=== PATIENT | male | born 1960 | race Caucasian/White ===

== ENCOUNTER 2017-11-18 08:19 | Day surgery (SDC) | payer MEDICAID ==
[~2017-11-18] VITALS: Ht 177.8 cm; Wt 100.0 kg
[~2017-11-18 08:19] MED LIST: ATOR-2 PO; FENO134C PO; LORA10TA7 PO; METF500T6 PO; NITR0.4T48 SL; OMEP40CA37 PO; OXYC-150 PO; PREG100C PO; RIVA10TA PO; SUMA50TA PO; TEST200V IM
[2017-11-18] MEDS ORDERED: LIDOcaine Viscous 15ml cup ONE (08:27)
[2017-11-18] MEDS ORDERED: MIDAZolam 5mg/5ml vial ONE (08:27)
[2017-11-18] MEDS ORDERED: fentaNYL/PF 50MCG/1 ML 2ML syringe ONE (08:27)
[2017-11-18] MEDS ORDERED: MULT-933 PO (08:47)
[2017-11-18] MEDS ORDERED: OMEG-79 PO (08:48)
[2017-11-18 08:49] VITALS: BP 161/101
[2017-11-18 09:40] VITALS: BP 165/103
[2017-11-18 09:50] VITALS: BP 168/103
[2017-11-18 10:00] VITALS: BP 167/104
[2017-11-18 10:10] VITALS: BP 165/106
== END 2017-11-18 10:20 | disposition home or self-care (01) ==
LOC: GI LAB 08:19
PROVIDERS: ATTEND Internal Medicine Gastroenterology
DX: K29.50 Unspecified chronic gastritis without bleeding (principal); K57.30 Diverticulosis of large intestine without perforation or abscess without bleeding; K64.8 Other hemorrhoids; K63.89 Other specified diseases of intestine; I25.2 Old myocardial infarction; I10 Essential (primary) hypertension; E11.9 Type 2 diabetes mellitus without complications; Z86.73 Personal history of transient ischemic attack (TIA), and cerebral infarction without residual deficits; Z98.890 Other specified postprocedural states; Z86.14 Personal history of Methicillin resistant Staphylococcus aureus infection; Z87.39 Personal history of other diseases of the musculoskeletal system and connective tissue; Z87.19 Personal history of other diseases of the digestive system
CPT/HCPCS: 43239; 45378; J2250; J3010; J7030; A4620; G0500

== ENCOUNTER 2018-06-25 16:30 | Emergency (ER) | payer MEDICAID ==
[~2018-06-25] VITALS: Ht 180.3 cm; Wt 97.7 kg
[~2018-06-25 16:30] MED LIST changes: +METF-950 PO; -METF500T6 PO; +MULT-933 PO; +OMEG-79 PO; -TEST200V IM
[2018-06-25 16:54] VITALS: BP 148/72
[2018-06-25] MEDS ORDERED: HYDROcodone/acetaminophen 5mg/325mg tablet PO ONE (18:40)
== END 2018-06-25 19:27 | disposition home or self-care (01) ==
LOC: ER 16:32
DX: S20.211A Contusion of right front wall of thorax, initial encounter (principal); M25.511 Pain in right shoulder; I25.10 Atherosclerotic heart disease of native coronary artery without angina pectoris; I10 Essential (primary) hypertension; E78.00 Pure hypercholesterolemia, unspecified; I25.2 Old myocardial infarction; J44.9 Chronic obstructive pulmonary disease, unspecified; K21.9 Gastro-esophageal reflux disease without esophagitis; E11.9 Type 2 diabetes mellitus without complications; G89.29 Other chronic pain; Z86.73 Personal history of transient ischemic attack (TIA), and cerebral infarction without residual deficits; Z86.718 Personal history of other venous thrombosis and embolism; Z98.61 Coronary angioplasty status; Z98.890 Other specified postprocedural states; Z88.0 Allergy status to penicillin; Z88.2 Allergy status to sulfonamides; Z88.6 Allergy status to analgesic agent; Z91.040 Latex allergy status; Z88.8 Allergy status to other drugs, medicaments and biological substances; Z79.84 Long term (current) use of oral hypoglycemic drugs; Z79.899 Other long term (current) drug therapy; V09.9XXA Pedestrian injured in unspecified transport accident, initial encounter; Y93.89 Activity, other specified; Y92.89 Other specified places as the place of occurrence of the external cause; Y99.8 Other external cause status
CPT/HCPCS: 71046; 73030; 99284

== ENCOUNTER 2018-07-02 09:26 | Emergency (ER) | payer MEDICAID ==
[~2018-07-02] VITALS: Ht 177.8 cm; Wt 99.8 kg
[2018-07-02 09:31] VITALS: BP 136/95
[2018-07-02] MEDS ORDERED: ketorolac tromethamine 15mg/ml inj. IM ONE (10:35)
[2018-07-02] MEDS ORDERED: diazepam 5mg tablet PO ONE (10:35)
[2018-07-02] MEDS ORDERED: VAL5T PO (10:36)
== END 2018-07-02 10:46 | disposition home or self-care (01) ==
LOC: ER 09:27
DX: S29.012A Strain of muscle and tendon of back wall of thorax, initial encounter (principal); I25.10 Atherosclerotic heart disease of native coronary artery without angina pectoris; E78.00 Pure hypercholesterolemia, unspecified; I10 Essential (primary) hypertension; I25.2 Old myocardial infarction; J44.9 Chronic obstructive pulmonary disease, unspecified; K21.9 Gastro-esophageal reflux disease without esophagitis; E11.9 Type 2 diabetes mellitus without complications; G89.29 Other chronic pain; Z86.718 Personal history of other venous thrombosis and embolism; Z95.5 Presence of coronary angioplasty implant and graft; Z98.890 Other specified postprocedural states; Z88.0 Allergy status to penicillin; Z88.2 Allergy status to sulfonamides; Z88.6 Allergy status to analgesic agent; Z91.040 Latex allergy status; Z79.899 Other long term (current) drug therapy; X58.XXXA Exposure to other specified factors, initial encounter; Y93.89 Activity, other specified; Y92.89 Other specified places as the place of occurrence of the external cause; Y99.9 Unspecified external cause status
CPT/HCPCS: 96372; 99284; J1885

== ENCOUNTER 2018-12-24 08:35 | Outpatient (CLI) | payer MEDICAID ==
[~2018-12-24 08:35] MED LIST changes: +OMEP40CA13 PO; -OMEP40CA37 PO
[2018-12-30] MEDS ORDERED: EVOL140P (16:05)
[2018-12-30] MEDS ORDERED: GABA-532 PO (16:05)
[2018-12-30] MEDS ORDERED: FERR324T4 PO (16:05)
[2018-12-30] MEDS ORDERED: FLUT1AER INH (16:05)
== END 2018-12-24 23:59 | disposition home or self-care (01) ==
LOC: RAD 08:35
PROVIDERS: ATTEND Surgery
DX: R10.9 Unspecified abdominal pain (principal); R11.2 Nausea with vomiting, unspecified; I10 Essential (primary) hypertension; E11.9 Type 2 diabetes mellitus without complications
CPT/HCPCS: 76700

== ENCOUNTER 2018-12-24 13:49 | Outpatient (CLI) | payer MEDICAID ==
[2018-12-30] MEDS ORDERED: FLUT1AER INH (16:05)
[2018-12-30] MEDS ORDERED: FERR324T4 PO (16:05)
[2018-12-30] MEDS ORDERED: GABA-532 PO (16:05)
[2018-12-30] MEDS ORDERED: EVOL140P (16:05)
== END 2018-12-24 23:59 | disposition home or self-care (01) ==
LOC: RAD 13:49
PROVIDERS: ATTEND Surgery
DX: R10.2 Pelvic and perineal pain (principal)
CPT/HCPCS: 76882

== ENCOUNTER 2018-12-31 07:51 | Day surgery (SDC) | payer MEDICAID ==
[2018-12-30 15:06] LABS: BASOPHILS # (AUTO) 0.1 X10'3 (0-0.2); BASOPHILS % (AUTO) 1.1 % (0-1); EOSINOPHILS # (AUTO) 0.1 X10'3 (0-0.9); EOSINOPHILS % (AUTO) 2.1 % (0-6); LYMPHOCYTES # (AUTO) 1.2 X10'3 (1.1-4.8); LYMPHOCYTES % (AUTO) 22.6 % (21-51); MEAN CORPUSCULAR HEMOGLOBIN 31.4 PG (27.0-31.0); MEAN CORPUSCULAR HGB CONC 34.2 g/dL (33.0-36.5); MEAN CORPUSCULAR VOLUME 91.9 FL (78-98); MEAN PLATELET VOLUME 6.7 FL (7.4-10.4); MONOCYTES # (AUTO) 0.5 X10'3 (0-0.9); MONOCYTES % (AUTO) 9.4 % (2-12); NEUTROPHILS # (AUTO) 3.5 X10'3 (1.8-7.7); NEUTROPHILS % (AUTO) 64.8 % (42-75); PRE OP HEMATOCRIT 35.3 % (42.0-52.0); PRE OP HEMOGLOBIN 12.1 g/dL (14.0-17.9); PRE OP PLATELET COUNT 329 X10'3 (140-440); RED BLOOD COUNT 3.84 X10'6 (4.70-6.10); RED CELL DISTRIBUTION WIDTH 14.5 % (11.5-14.5)
[2018-12-30 15:11] LABS: PRE OP PROTIME 10.9 SECONDS (9.0-12.0)
[2018-12-30 15:13] LABS: BLOOD UREA NITROGEN 9 MG/DL (7-18); CHLORIDE 106 MMOL/L (99-107); CREATININE 0.73 MG/DL (0.60-1.10); PRE OP ANION GAP 10 (8-16); PRE OP GLUCOSE 121 MG/DL (70-104); PRE OP SODIUM 142 MMOL/L (135-145); TOTAL CARBON DIOXIDE 25.6 MMOL/L (24-32)
[2018-12-30 15:14] LABS: ALKALINE PHOSPHATASE 51 IU/L (46-116); BUN/CREATININE RATIO 12.3 (5.4-32.0); CALCIUM 8.8 MG/DL (8.5-10.1); PRE OP ALT 55 U/L (30-65); PRE OP AST 42 U/L (10-37); PRE OP BILIRUB, TOTAL 0.4 MG/DL (0.0-1.0); eGFR > 90 ML/MIN
[2018-12-30 15:22] LABS: PRE OP POTASSIUM 3.2 MMOL/L (3.4-5.1)
[2018-12-31] VITALS (7 sets, daily range): BP systolic 109–147; BP diastolic 55–95
[~2018-12-31] VITALS: Ht 177.8 cm; Wt 99.8 kg
[~2018-12-31 07:51] MED LIST changes: +EVOL140P; +FERR324T4 PO; +FLUT1AER INH; +GABA-532 PO; -MULT-933 PO; -OXYC-150 PO; -PREG100C PO
[2018-12-31] MEDS ORDERED: famotidine 20mg tablet PO ONE (09:30)
[2018-12-31] MEDS ORDERED: albuterol 2.5 MG/3 ML nebule NEB ONE (09:30)
[2018-12-31] MEDS ORDERED: ringers solution, lacted 1,000 ML IV SCH ×2 (09:30→12:52)
[2018-12-31] MEDS ORDERED: cefazolin/dext.iso 2gm/50ml 50 ML IV ONE (09:30)
[2018-12-31 10:26] LABS: ISTAT ANION GAP 14 (8-12); ISTAT BUN 16 mg/dL (6-19); ISTAT CL 106 mmol/L (99-107); ISTAT CREATININE 0.7 mg/dL (0.8-1.3); ISTAT GLUCOSE 110 mg/dL (70-104); ISTAT HGB 10.9 g/dl (14.0-18.0); ISTAT Hct 32 %PCV (42-52); ISTAT IONIZED CALCIUM 1.26 mmol/L (1.03-1.32); ISTAT K 3.3 mmol/L (3.5-5.1); ISTAT NA 143 mmol/L (135-145); ISTAT TOTAL CO2 23 mmol/L (24-32); ISTAT eGFR > 90 ML/MIN; POC BUN/CREATININE RATIO 22.9 (5.4-32.0)
[2018-12-31] MEDS ORDERED: BUPIVAcaine/PF 2.5 mg/ml (0.25%) 30ml vial ONE (12:34)
[2018-12-31] MEDS ORDERED: fentaNYL/PF 50MCG/1 ML 2ML syringe IV PRN ×2 (12:55)
[2018-12-31] MEDS ORDERED: ondansetron/PF 4mg/2ml inj IV PRN (12:55)
[2018-12-31] MEDS ORDERED: hydrALAZINE 20mg/ml inj. IV PRN (12:55)
[2018-12-31] MEDS ORDERED: morphine 4 MG/ML inj SYRINge IV PRN ×2 (12:55)
[2018-12-31] MEDS ORDERED: labetalol 20mg/4ml (5mg/ml) syringe IV PRN (12:55)
[2018-12-31] MEDS ORDERED: dexamethasone sod phosphate 10mg/ml inj ONE (13:02)
[2018-12-31] MEDS ORDERED: LIDOcaine 2% (20mg/ml) 5ml vial ONE (13:03)
[2018-12-31] MEDS ORDERED: propofol inj 20 ML IV ONE (13:03)
[2018-12-31] MEDS ORDERED: midazolam 2 mg/2 ml injection ONE (13:03)
[2018-12-31] MEDS ORDERED: fentaNYL/PF 50MCG/1 ML 2ML syringe ONE (13:03)
[2018-12-31] MEDS ORDERED: ondansetron/PF 4mg/2ml inj ONE (13:12)
[2018-12-31] MEDS ORDERED: mupirocin 2% ointment 22GM ONE (13:22)
[2018-12-31] MEDS ORDERED: bacitracin 15gm ointment TP ONE (13:30)
--- NOTE | 2018-12-31 14:08 | NUR ---
Received from OR via [facility], accompanied by Anesthesiologist JEFERSON and report given by Anesthesiolgist. Pt VS stable, O2 mask at 10L and O2 sat 97%. Inguinal right side groin site with island dressing no drainage patient moves all extremeties. Pt alert and responsive. 20G to right hand IVF LR 100cc/hr. No ther issues communicated by MD. Surgeon states pt does not need to void prior to discharge.
[2018-12-31] MEDS ORDERED: HYDROcodone/acetaminophen 10/325mg tab PO ONE (14:55)
--- NOTE | 2018-12-31 15:19 | NUR ---
Pt left floor by wheelchair for discharge to vehicle without incident. Pt alert and oriented verbalized understanding of all DC information, IV dc'd, received pain pill, tolerated food and oral liquids, ambulated without issues. Script sent to pharmacy by doctors office. Pt knows to follow up in 2 weeks.
== END 2018-12-31 15:18 | disposition home or self-care (01) ==
LOC: PAS 07:51
PROVIDERS: ATTEND Surgery
DX: R10.30 Lower abdominal pain, unspecified (principal); J44.9 Chronic obstructive pulmonary disease, unspecified; I25.10 Atherosclerotic heart disease of native coronary artery without angina pectoris; I25.2 Old myocardial infarction; E11.9 Type 2 diabetes mellitus without complications; E66.9 Obesity, unspecified; Z68.31 Body mass index [BMI] 31.0-31.9, adult; Z95.5 Presence of coronary angioplasty implant and graft; Z88.0 Allergy status to penicillin; Z88.8 Allergy status to other drugs, medicaments and biological substances; Z88.2 Allergy status to sulfonamides; Z91.040 Latex allergy status; Z79.899 Other long term (current) drug therapy; Z79.84 Long term (current) use of oral hypoglycemic drugs
CPT/HCPCS: 36415; 64772; 80053; 85025; 85610; 85730; 93005; J1100; J2001; J2250; J2405; J2704; J3010; J3490; 80047; A4215; A4618; A7000; J7120

== ENCOUNTER 2019-01-22 14:31 | Emergency (ER) | payer MEDICAID ==
[~2019-01-22] VITALS: Ht 180.3 cm; Wt 97.7 kg
[2019-01-22 15:18] LABS: BASOPHILS # (AUTO) 0.1 X10'3 (0-0.2); BASOPHILS % (AUTO) 1.2 % (0-1); EOSINOPHILS # (AUTO) 0.1 X10'3 (0-0.9); EOSINOPHILS % (AUTO) 2.6 % (0-6); HEMATOCRIT 35.1 % (42.0-52.0); HEMOGLOBIN 12.5 g/dl (14.0-17.9); LYMPHOCYTES # (AUTO) 1.6 X10'3 (1.1-4.8); LYMPHOCYTES % (AUTO) 29.1 % (21-51); MEAN CORPUSCULAR HGB CONC 35.5 g/dL (33.0-36.5); MEAN CORPUSCULAR VOLUME 90.1 FL (78-98); MEAN PLATELET VOLUME 6.9 FL (7.4-10.4); MONOCYTES # (AUTO) 0.4 X10'3 (0-0.9); MONOCYTES % (AUTO) 6.7 % (2-12); NEUTROPHILS # (AUTO) 3.4 X10'3 (1.8-7.7); NEUTROPHILS % (AUTO) 60.4 % (42-75); PLATELET COUNT 309 X10'3 (140-440); RED BLOOD COUNT 3.89 X10'6 (4.70-6.10); RED CELL DISTRIBUTION WIDTH 14.2 % (11.5-14.5); WHITE BLOOD COUNT 5.6 X10'3 (4.5-11.0)
[2019-01-22 15:25] LABS: ALANINE AMINOTRANSFERASE 41 U/L (12-78); ALBUMIN 3.8 G/DL (3.4-5.0); ALKALINE PHOSPHATASE 53 IU/L (46-116); ANION GAP 10 (8-16); BILIRUBIN,TOTAL 0.2 MG/DL (0.1-1.0); BLOOD UREA NITROGEN 13 MG/DL (7-18); BUN/CREATININE RATIO 15.7 (5.4-32.0); CALCIUM 8.6 MG/DL (8.5-10.1); CHLORIDE 107 MMOL/L (99-107); CREATININE 0.83 MG/DL (0.60-1.10); SODIUM 141 MMOL/L (135-145); TOTAL CARBON DIOXIDE 24.2 MMOL/L (24-32); TOTAL PROTEIN 7.8 G/DL (6.4-8.2); eGFR > 90 ML/MIN
[2019-01-22 15:40] LABS: CLARITY,URINE CLEAR (Clear); COLOR,URINE YELLOW (Yellow); GLUCOSE, URINE NEGATIVE (Neg); KETONES,URINE NEGATIVE (Neg); LEUKOCYTE ESTERASE ,URINE TRACE (Neg); NITRITES, URINE NEGATIVE (Neg); OCCULT BLOOD,URINE NEGATIVE (Neg); PH,URINE 6.5 (4.8-8.0); PROTEIN,URINE NEGATIVE (Neg); UROBILINOGEN,URINE 0.2 E.U/dL (0.2-1.0)
[2019-01-22 15:41] LABS: UA COLLECTION TYPE CLN CATCH MIDSTREAM
[2019-01-22 15:50] LABS: BACTERIA,URINE 1+ /HPF (Neg); SQUAMOUS EPITHELIAL CELL,UR FEW /LPF (FEW)
[2019-01-22 15:51] LABS: RBC,URINE 0-2 /HPF (0-2); WBC,URINE 0-4 /HPF (0-4)
[2019-01-22 16:05] LABS: ASPARTATE AMINO TRANSFERASE 36 U/L (10-37)
[2019-01-22 16:10] LABS: GLUCOSE 167 MG/DL (70-104); POTASSIUM 3.1 MMOL/L (3.5-5.1)
[2019-01-22 17:21] VITALS: BP 153/103
== END 2019-01-22 17:23 | disposition home or self-care (01) ==
LOC: ER 14:31
DX: G89.18 Other acute postprocedural pain (principal); K40.90 Unilateral inguinal hernia, without obstruction or gangrene, not specified as recurrent; N50.89 Other specified disorders of the male genital organs; I10 Essential (primary) hypertension; I25.10 Atherosclerotic heart disease of native coronary artery without angina pectoris; E78.00 Pure hypercholesterolemia, unspecified; I25.2 Old myocardial infarction; J44.9 Chronic obstructive pulmonary disease, unspecified; K21.9 Gastro-esophageal reflux disease without esophagitis; E11.9 Type 2 diabetes mellitus without complications; G89.29 Other chronic pain; Z86.73 Personal history of transient ischemic attack (TIA), and cerebral infarction without residual deficits; Z86.718 Personal history of other venous thrombosis and embolism; Z98.61 Coronary angioplasty status; Z98.890 Other specified postprocedural states; Z88.0 Allergy status to penicillin; Z88.2 Allergy status to sulfonamides; Z88.6 Allergy status to analgesic agent; Z91.040 Latex allergy status; Z91.09 Other allergy status, other than to drugs and biological substances; Z79.84 Long term (current) use of oral hypoglycemic drugs; Z79.899 Other long term (current) drug therapy
CPT/HCPCS: 36415; 76857; 80053; 81001; 85025; 87077; 87088; 99284

== ENCOUNTER 2019-09-24 16:09 | Emergency (ER) | payer MEDICAID ==
[~2019-09-24] VITALS: Ht 177.8 cm; Wt 115.0 kg
[~2019-09-24 16:09] MED LIST changes: -EVOL140P; +EVOL140P3
[2019-09-24] MEDS ORDERED: CEPH-572 PO (19:00)
[2019-09-24 19:05] VITALS: BP 140/89
== END 2019-09-24 19:12 | disposition home or self-care (01) ==
LOC: ER 16:09
DX: S91.001A Unspecified open wound, right ankle, initial encounter (principal); M25.561 Pain in right knee; R60.0 Localized edema; I25.10 Atherosclerotic heart disease of native coronary artery without angina pectoris; E78.00 Pure hypercholesterolemia, unspecified; I10 Essential (primary) hypertension; I25.2 Old myocardial infarction; K21.9 Gastro-esophageal reflux disease without esophagitis; J44.9 Chronic obstructive pulmonary disease, unspecified; E11.9 Type 2 diabetes mellitus without complications; Z86.73 Personal history of transient ischemic attack (TIA), and cerebral infarction without residual deficits; Z86.718 Personal history of other venous thrombosis and embolism; Z98.61 Coronary angioplasty status; Z98.890 Other specified postprocedural states; Z88.0 Allergy status to penicillin; Z88.2 Allergy status to sulfonamides; Z91.040 Latex allergy status; Z88.6 Allergy status to analgesic agent; Z88.8 Allergy status to other drugs, medicaments and biological substances; Z79.899 Other long term (current) drug therapy; Z79.84 Long term (current) use of oral hypoglycemic drugs; X58.XXXA Exposure to other specified factors, initial encounter; Y93.89 Activity, other specified; Y92.89 Other specified places as the place of occurrence of the external cause; Y99.8 Other external cause status
CPT/HCPCS: 73564; 93971; 99284

== ENCOUNTER 2019-10-05 14:33 | Emergency (ER) | payer MEDICAID ==
[~2019-10-05] VITALS: Ht 177.8 cm; Wt 113.6 kg
[2019-10-05 15:18] LABS: BASOPHILS # (AUTO) 0.1 X10'3 (0-0.2); BASOPHILS % (AUTO) 1.1 % (0-1); EOSINOPHILS # (AUTO) 0.1 X10'3 (0-0.9); EOSINOPHILS % (AUTO) 2.3 % (0-6); HEMATOCRIT 28.9 % (42.0-52.0); HEMOGLOBIN 10.2 g/dl (14.0-17.9); LYMPHOCYTES # (AUTO) 1.6 X10'3 (1.1-4.8); MEAN CORPUSCULAR HGB CONC 35.3 g/dL (33.0-36.5); MEAN CORPUSCULAR VOLUME 96.5 FL (78-98); MEAN PLATELET VOLUME 7.1 FL (7.4-10.4); MONOCYTES # (AUTO) 0.6 X10'3 (0-0.9); MONOCYTES % (AUTO) 9.2 % (2-12); NEUTROPHILS # (AUTO) 3.8 X10'3 (1.8-7.7); NEUTROPHILS % (AUTO) 61.4 % (42-75); PLATELET COUNT 372 X10'3 (140-440); RED CELL DISTRIBUTION WIDTH 14.2 % (11.5-14.5); WHITE BLOOD COUNT 6.1 X10'3 (4.5-11.0)
[2019-10-05] MEDS ORDERED: LORazepam 2 mg/ml vial IV ONE (15:25)
[2019-10-05 15:27] LABS: PARTIAL THROMBOPLASTIN TIME 30 SECONDS (22-32)
[2019-10-05 15:41] LABS: ASPARTATE AMINO TRANSFERASE 41 U/L (10-37); BILIRUBIN,TOTAL 0.2 MG/DL (0.1-1.0); CALCIUM 8.7 MG/DL (8.5-10.1); CHLORIDE 106 MMOL/L (99-107); POTASSIUM 3.9 MMOL/L (3.5-5.1); TOTAL CARBON DIOXIDE 24.8 MMOL/L (24-32)
[2019-10-05] MEDS ORDERED: iohexol 350MG/ML 100ml bottle IV ONE (15:43)
--- NOTE | 2019-10-05 15:54 | NUR ---
Medicated with Ativan. Pt to CT scan as ordered.
[2019-10-05] MEDS ORDERED: MESSAGE TO NURSING PO SCH (16:00)
[2019-10-05 16:10] LABS: ALANINE AMINOTRANSFERASE 48 U/L (12-78); ALBUMIN 3.9 G/DL (3.4-5.0); ALBUMIN/GLOBULIN RATIO 1.1 (1.1-1.5); ALKALINE PHOSPHATASE 75 IU/L (46-116); ANION GAP 10 (8-16); BLOOD UREA NITROGEN 17 MG/DL (7-18); BUN/CREATININE RATIO 16.7 (5.4-32.0); CREATININE 1.02 MG/DL (0.60-1.10); GLUCOSE 148 MG/DL (70-104); SODIUM 141 MMOL/L (135-145); TOTAL PROTEIN 7.6 G/DL (6.4-8.2); eGFR 74 ML/MIN
--- NOTE | 2019-10-05 16:12 | NUR ---
Returned from CT scan as ordered & tolerated well.
[2019-10-05 17:43] VITALS: BP 132/79
== END 2019-10-05 17:45 | disposition home or self-care (01) ==
LOC: ER 14:34
DX: R07.89 Other chest pain (principal); R06.02 Shortness of breath; I25.10 Atherosclerotic heart disease of native coronary artery without angina pectoris; E78.00 Pure hypercholesterolemia, unspecified; I10 Essential (primary) hypertension; I25.2 Old myocardial infarction; J44.9 Chronic obstructive pulmonary disease, unspecified; K21.9 Gastro-esophageal reflux disease without esophagitis; E11.9 Type 2 diabetes mellitus without complications; G89.29 Other chronic pain; Z86.718 Personal history of other venous thrombosis and embolism; Z98.61 Coronary angioplasty status; Z98.890 Other specified postprocedural states; Z86.73 Personal history of transient ischemic attack (TIA), and cerebral infarction without residual deficits; Z88.0 Allergy status to penicillin; Z88.2 Allergy status to sulfonamides; Z88.6 Allergy status to analgesic agent; Z91.040 Latex allergy status; Z79.899 Other long term (current) drug therapy
CPT/HCPCS: 36415; 71045; 71275; 80053; 84484; 85025; 85610; 85730; 93005; 96374; 99285; J2060; Q9967

== ENCOUNTER 2019-11-17 06:37 | Day surgery (SDC) | payer MEDICAID ==
[2019-11-11 15:13] LABS: BASOPHILS % (AUTO) 0.7 % (0-1); EOSINOPHILS # (AUTO) 0.2 X10'3 (0-0.9); EOSINOPHILS % (AUTO) 5.1 % (0-6); HEMATOCRIT 34.8 % (42.0-52.0); HEMOGLOBIN 11.7 g/dl (14.0-17.9); LYMPHOCYTES # (AUTO) 1.5 X10'3 (1.1-4.8); LYMPHOCYTES % (AUTO) 30.9 % (21-51); MEAN CORPUSCULAR HEMOGLOBIN 31.3 PG (27.0-31.0); MEAN CORPUSCULAR HGB CONC 33.5 g/dL (33.0-36.5); MEAN CORPUSCULAR VOLUME 93.2 FL (78-98); MEAN PLATELET VOLUME 6.9 FL (7.4-10.4); MONOCYTES # (AUTO) 0.6 X10'3 (0-0.9); MONOCYTES % (AUTO) 12.6 % (2-12); NEUTROPHILS # (AUTO) 2.4 X10'3 (1.8-7.7); NEUTROPHILS % (AUTO) 50.7 % (42-75); PLATELET COUNT 229 X10'3 (140-440); RED BLOOD COUNT 3.73 X10'6 (4.70-6.10); RED CELL DISTRIBUTION WIDTH 14.1 % (11.5-14.5); WHITE BLOOD COUNT 4.8 X10'3 (4.5-11.0)
[2019-11-11 15:33] LABS: ALBUMIN 3.8 G/DL (3.4-5.0); ANION GAP 9 (8-16); BLOOD UREA NITROGEN 16 MG/DL (7-18); BUN/CREATININE RATIO 16.5 (5.4-32.0); CALCIUM 8.9 MG/DL (8.5-10.1); CHLORIDE 106 MMOL/L (99-107); CREATININE 0.97 MG/DL (0.60-1.10); GLUCOSE 110 MG/DL (70-104); POTASSIUM 3.6 MMOL/L (3.5-5.1); SODIUM 140 MMOL/L (135-145); TOTAL CARBON DIOXIDE 25.4 MMOL/L (24-32); eGFR 79 ML/MIN
[2019-11-11 15:35] LABS: PARTIAL THROMBOPLASTIN TIME 34 SECONDS (22-32)
[~2019-11-17] VITALS: Ht 177.8 cm; Wt 120.3 kg
[2019-11-17] VITALS (9 sets, daily range): BP systolic 109–143; BP diastolic 58–88
[2019-11-17] MEDS ORDERED: LORazepam 0.5 MG tablet PO PRN (06:50)
[2019-11-17] MEDS ORDERED: LIDOcaine/PRILOcaine 5gm cream TP ONE (06:50)
[2019-11-17] MEDS ORDERED: diphenhydrAMINE 25mg capsule PO PRN (06:50)
[2019-11-17] MEDS ORDERED: MULT-1172 (07:26)
[2019-11-17] MEDS ORDERED: IBUP-1986 PO (07:26)
[2019-11-17] MEDS ORDERED: LISI-604 PO (07:26)
[2019-11-17] MEDS ORDERED: NITR0.4T48 SL (07:26)
[2019-11-17] MEDS ORDERED: BUPR1FIL3 SL (07:26)
[2019-11-17] MEDS ORDERED: LIDOcaine 1% (10mg/ml)w/preservative injection 20ml MDV ONE (10:20)
[2019-11-17] MEDS ORDERED: midazolam 2 mg/2 ml injection ONE ×2 (10:20→11:18)
[2019-11-17] MEDS ORDERED: fentaNYL/PF 50MCG/1 ML 2ML syringe ONE (10:20)
[2019-11-17] MEDS ORDERED: iohexol 350MG/ML 100ml bottle IV ONE ×2 (10:20→11:57)
[2019-11-17] MEDS ORDERED: heparin 1,000unit/ml 10ml vial 10 ML ONE (10:26)
[2019-11-17] MEDS ORDERED: verapamil 2.5 mg/ml inj IV ONE (10:26)
[2019-11-17] MEDS ORDERED: nitroGLYCERIN-Tridil 50MG/D5W 250 ML IV ONE (10:52)
[2019-11-17] MEDS ORDERED: HYDROmorphone 1 mg/ml syringe ONE ×2 (11:40→12:09)
[2019-11-17] MEDS ORDERED: heparin 1,000 UNITS/NS 500ml 500 ML ONE (11:54)
[2019-11-17] MEDS ORDERED: ticagrelor 90mg tablet ONE (12:39)
[2019-11-17] MEDS ORDERED: HYDROcodone/acetaminophen 10/325mg tab PO PRN (13:20)
[2019-11-17] MEDS ORDERED: HYDROcodone/acetaminophen 5mg/325mg tablet PO PRN (13:20)
[2019-11-17] MEDS ORDERED: normal saline 1000ml 1,000 ML IV SCH (13:20)
[2019-11-17] MEDS ORDERED: proCHLORperazine 10 MG/2 ml inj IV PRN (13:20)
[2019-11-17] MEDS ORDERED: ondansetron/PF 4mg/2ml inj IV PRN (13:20)
[2019-11-17] MEDS ORDERED: OXAZEpam 15mg capsule PO PRN (13:20)
== END 2019-11-17 16:30 | disposition home or self-care (01) ==
LOC: SSTAY O 06:37
PROVIDERS: ATTEND Internal Medicine Interventional Cardiology
DX: R94.39 Abnormal result of other cardiovascular function study (principal); I25.10 Atherosclerotic heart disease of native coronary artery without angina pectoris; I25.82 Chronic total occlusion of coronary artery; J44.9 Chronic obstructive pulmonary disease, unspecified; G47.33 Obstructive sleep apnea (adult) (pediatric); E11.9 Type 2 diabetes mellitus without complications; I10 Essential (primary) hypertension; D64.9 Anemia, unspecified; E78.49 Other hyperlipidemia; I44.1 Atrioventricular block, second degree; E66.01 Morbid (severe) obesity due to excess calories; Z68.36 Body mass index [BMI] 36.0-36.9, adult; Z86.718 Personal history of other venous thrombosis and embolism; Z86.73 Personal history of transient ischemic attack (TIA), and cerebral infarction without residual deficits; Z79.899 Other long term (current) drug therapy; Z88.8 Allergy status to other drugs, medicaments and biological substances; Z88.2 Allergy status to sulfonamides; Z88.0 Allergy status to penicillin; Z87.891 Personal history of nicotine dependence; Z79.84 Long term (current) use of oral hypoglycemic drugs; Z95.5 Presence of coronary angioplasty implant and graft; Z79.01 Long term (current) use of anticoagulants
CPT/HCPCS: 36415; 80048; 82948; 85025; 85610; 85730; 93005; 93458; 99152; 99153; C1725; C1751; C1760; C1769; C1874; C1894; C9600; J1170; J1644; J2001; J2250; J3010; J7030; Q0163; Q9967; 92920; 93459; A4620; A5120; C9607; J3490

== ENCOUNTER 2019-11-22 07:46 | Inpatient (IN) | payer MEDICAID ==
[2019-11-22] VITALS (13 sets, daily range): BP systolic 112–160; BP diastolic 68–96
[~2019-11-22] VITALS: Ht 177.8 cm; Wt 113.0 kg
[~2019-11-22 07:46] MED LIST changes: +BUPR1FIL3 SL; +IBUP-1986 PO; +LISI-604 PO; +MULT-1172 PO; -SUMA50TA PO
[2019-11-22] MEDS ORDERED: heparin 10,000 units/1 ML INJ IV ONE (08:00)
[2019-11-22] MEDS ORDERED: nitroGLYCERIN-Tridil 50MG/D5W 250 ML IV PRN (08:00)
--- NOTE | 2019-11-22 08:02 | NUR ---
EMS EKG TRANSMITTED AND CONFIRMED AT 0736:41, TRANSMISSION NOT RECEIVED.
[2019-11-22 08:10] LABS: BASOPHILS # (AUTO) 0.1 X10'3 (0-0.2); BASOPHILS % (AUTO) 0.7 % (0-1); EOSINOPHILS # (AUTO) 0.2 X10'3 (0-0.9); EOSINOPHILS % (AUTO) 3.2 % (0-6); HEMATOCRIT 38.3 % (42.0-52.0); HEMOGLOBIN 12.7 g/dl (14.0-17.9); LYMPHOCYTES # (AUTO) 1.7 X10'3 (1.1-4.8); LYMPHOCYTES % (AUTO) 21.7 % (21-51); MEAN CORPUSCULAR HEMOGLOBIN 30.8 PG (27.0-31.0); MEAN CORPUSCULAR HGB CONC 33.1 g/dL (33.0-36.5); MEAN CORPUSCULAR VOLUME 93.2 FL (78-98); MONOCYTES # (AUTO) 0.6 X10'3 (0-0.9); MONOCYTES % (AUTO) 8.2 % (2-12); NEUTROPHILS # (AUTO) 5.1 X10'3 (1.8-7.7); NEUTROPHILS % (AUTO) 66.2 % (42-75); PLATELET COUNT 314 X10'3 (140-440); RED BLOOD COUNT 4.11 X10'6 (4.70-6.10); RED CELL DISTRIBUTION WIDTH 14.3 % (11.5-14.5); WHITE BLOOD COUNT 7.8 X10'3 (4.5-11.0)
[2019-11-22] MEDS ORDERED: morphine 4 MG/ML inj SYRINge IV ONE (08:20)
[2019-11-22 08:23] LABS: ALANINE AMINOTRANSFERASE 75 U/L (12-78); ALBUMIN 4.3 G/DL (3.4-5.0); ALBUMIN/GLOBULIN RATIO 1.1 (1.1-1.5); ALKALINE PHOSPHATASE 47 IU/L (46-116); ANION GAP 15 (8-16); ASPARTATE AMINO TRANSFERASE 58 U/L (10-37); BILIRUBIN,TOTAL 0.4 MG/DL (0.1-1.0); BLOOD UREA NITROGEN 17 MG/DL (7-18); BUN/CREATININE RATIO 15.6 (5.4-32.0); CALCIUM 9.3 MG/DL (8.5-10.1); CHLORIDE 105 MMOL/L (99-107); CREATININE 1.09 MG/DL (0.60-1.10); GLUCOSE 182 MG/DL (70-104); POTASSIUM 3.4 MMOL/L (3.5-5.1); SODIUM 141 MMOL/L (135-145); TOTAL CARBON DIOXIDE 21.1 MMOL/L (24-32); TOTAL PROTEIN 8.3 G/DL (6.4-8.2); eGFR 69 ML/MIN
[2019-11-22] MEDS ORDERED: midazolam 2 mg/2 ml injection ONE ×2 (08:26→09:35)
[2019-11-22] MEDS ORDERED: fentaNYL/PF 50MCG/1 ML 2ML syringe ONE (08:27)
[2019-11-22] MEDS ORDERED: LIDOcaine 1% (10mg/ml)w/preservative injection 20ml MDV ONE (08:27)
[2019-11-22] MEDS ORDERED: heparin 1,000unit/ml 10ml vial 10 ML ONE ×2 (08:27→09:43)
[2019-11-22] MEDS ORDERED: iohexol 350 MG/1 ML 200ml bottle ONE (08:27)
--- NOTE | 2019-11-22 08:33 | NUR ---
Martin from the supervisor [facility] here and taking pt up
[2019-11-22] MEDS ORDERED: heparin 1,000 UNITS/NS 500ml 500 ML ONE (09:55)
[2019-11-22] MEDS ORDERED: metoprolol tartrate 1mg/ml inj IV ONE (10:05)
[2019-11-22] MEDS ORDERED: ticagrelor 90mg tablet ONE (10:13)
--- NOTE | 2019-11-22 10:25 | NUR ---
Patient in room . I have received report from SHAAN Salazar and had the opportunity to ask questions, waiting for pt's arrival.
--- NOTE | 2019-11-22 10:30 | NUR ---
Pt arrived straight from heart cath procedure to PCU. Transferred pt with slide board to bed with 3 person assist. Pt Alert and oriented to room, call light within reach, non skid socks on, BLL, SRx2. Pt is to lay flat for 6 hours. Groin dressing clean/dry/intact, no hematoma noted. Martin from heart cath said the bruise on his groin is from his heart cath from 4 days ago. 2 RN skin check complete, MRSA swab complete. First set of vitals complete. Cath orders faxed to pharmacy, Lipid panel ordered. New orders from Dr Mitchel Kern inputted.
[2019-11-22] MEDS ORDERED: HYDROcodone/acetaminophen 10/325mg tab PO PRN (10:55)
[2019-11-22] MEDS ORDERED: ondansetron/PF 4mg/2ml inj IV PRN (10:55)
[2019-11-22] MEDS ORDERED: nitroGLYCERIN 0.4mg SUBLingual tab SL PRN (10:55)
[2019-11-22] MEDS ORDERED: proCHLORperazine 10 MG/2 ml inj IV PRN (10:55)
--- NOTE | 2019-11-22 11:00 | NUR ---
Per Dr Kern, no need to inform him of critical elevated Troponin's if asymptomatic. It troponin's are elevating and patient is symptomatic, call him for further instruction.
[2019-11-22] MEDS: OXAZEpam 15mg capsule PO PRN ×2 (11:32→20:11)
--- NOTE | 2019-11-22 11:33 | NUR ---
CRITICAL LAB VALUE TAKEN FROM LAB, REPORTED TO PRIMARY RN.
[2019-11-22] MEDS ORDERED: nitroGLYCERIN 0.4mg SUBLingual tab SL SCH (11:40)
[2019-11-22] MEDS ORDERED: dextrose 50%-water 50ml dispensing syringe IV PRN ×2 (12:05)
[2019-11-22] MEDS ORDERED: insulin Lispro (HumaLOG) vial - multi-dose SQ SCH (12:05)
[2019-11-22] MEDS ORDERED: glucagon, human recombinant 1mg kit SUBCUT PRN (12:05)
[2019-11-22] MEDS ORDERED: dextrose ORAL solution 15 GM/59 ML bottle PO PRN ×2 (12:05)
[2019-11-22] MEDS ORDERED: MESSAGE TO PHARMACY PO ONE (12:05)
[2019-11-22] MEDS: metoprolol tartrate 12.5mg (1/2 tablet) PO SCH ×2 (12:08→20:11)
[2019-11-22] MEDS: pantoprazole 40mg Tablet.DR PO SCH (12:08)
[2019-11-22] MEDS: HYDROcodone/acetaminophen 5mg/325mg tablet PO PRN ×2 (13:31→22:25)
[2019-11-22 14:19] LABS: HEMOGLOBIN A1C 6.5 % (4.5-6.2)
[2019-11-22] MEDS: albuterol 2.5 MG/3 ML nebule NEB SCH ×2 (16:08→20:06)
--- NOTE | 2019-11-22 16:20 | NUR ---
Called Dr william regarding patient's potassium being 3.4, I left a message asking if I could order the K+/Mag replacement protocol.
[2019-11-22] MEDS ORDERED: magnesium Cl slow-release 64mg tablet PO PRN (16:30)
[2019-11-22] MEDS ORDERED: magnesium 4gm in 100ml NS 100 ML IV PRN (16:30)
[2019-11-22] MEDS ORDERED: potassium CL 10mEq/100ml bag 100 ML IV PRN (16:30)
[2019-11-22] MEDS ORDERED: potassium Cl 20 mEq SR tablet PO PRN (16:30)
[2019-11-22] MEDS: gabapentin 300mg capsule PO SCH (16:34)
[2019-11-22] MEDS: ibuprofen 200mg tablet PO SCH (16:34)
[2019-11-22] MEDS: potassium Cl 20 mEq SR tablet PO PRN ×2 (16:39→20:56)
--- NOTE | 2019-11-22 18:31 | NUR ---
Problems reprioritized. Patient report given, questions answered & plan of care reviewed with SHAAN Moser/SHAAN Headley. All pt needs met at this time.
--- NOTE | 2019-11-22 19:02 | NUR ---
Patient in room PCU 3028. I have received report from Iraida Gutierrez and had the opportunity to ask questions and assume patient care. Patient awake for bedside report on room air and has no fluids infusing.
[2019-11-22] MEDS: budesonide 0.5mg/2ml UD nebule IH SCH (20:08)
[2019-11-22] MEDS: ticagrelor 90mg tablet PO SCH (20:11)
[2019-11-22] MEDS: insulin glargine (Lantus) pen - multi-dose SQ SCH (21:00)
[2019-11-23] VITALS (9 sets, daily range): BP systolic 91–111; BP diastolic 56–76
[2019-11-23] MEDS: gabapentin 300mg capsule PO SCH ×3 (00:39→15:34)
[2019-11-23] MEDS: potassium Cl 20 mEq SR tablet PO PRN (00:39)
[2019-11-23] MEDS: ibuprofen 200mg tablet PO SCH ×3 (00:40→15:34)
[2019-11-23] MEDS: OXAZEpam 15mg capsule PO PRN (04:52)
[2019-11-23 05:34] LABS: BASOPHILS # (AUTO) 0.1 X10'3 (0-0.2); BASOPHILS % (AUTO) 0.9 % (0-1); EOSINOPHILS # (AUTO) 0.1 X10'3 (0-0.9); EOSINOPHILS % (AUTO) 1.4 % (0-6); HEMATOCRIT 32.2 % (42.0-52.0); HEMOGLOBIN 10.7 g/dl (14.0-17.9); LYMPHOCYTES # (AUTO) 1.2 X10'3 (1.1-4.8); LYMPHOCYTES % (AUTO) 19.5 % (21-51); MEAN CORPUSCULAR HEMOGLOBIN 30.8 PG (27.0-31.0); MEAN CORPUSCULAR HGB CONC 33.2 g/dL (33.0-36.5); MEAN CORPUSCULAR VOLUME 92.7 FL (78-98); MONOCYTES # (AUTO) 0.6 X10'3 (0-0.9); MONOCYTES % (AUTO) 9.5 % (2-12); NEUTROPHILS # (AUTO) 4.4 X10'3 (1.8-7.7); NEUTROPHILS % (AUTO) 68.7 % (42-75); PLATELET COUNT 259 X10'3 (140-440); RED BLOOD COUNT 3.48 X10'6 (4.70-6.10); RED CELL DISTRIBUTION WIDTH 14.7 % (11.5-14.5); WHITE BLOOD COUNT 6.4 X10'3 (4.5-11.0)
[2019-11-23 05:58] LABS: ALBUMIN 3.7 G/DL (3.4-5.0); ANION GAP 11 (8-16); BLOOD UREA NITROGEN 17 MG/DL (7-18); BUN/CREATININE RATIO 15.7 (5.4-32.0); CALCIUM 8.5 MG/DL (8.5-10.1); CHLORIDE 105 MMOL/L (99-107); CHOL/HDL RATIO 3.8 (0.00-4.99); CHOLESTEROL 95 MG/DL (0-200); CREATININE 1.08 MG/DL (0.60-1.10); GLUCOSE 130 MG/DL (70-104); HDL CHOLESTEROL 25 MG/DL (35-60); LDL CHOLESTEROL 40 MG/DL (50-100); POTASSIUM 3.9 MMOL/L (3.5-5.1); SODIUM 139 MMOL/L (135-145); TOTAL CARBON DIOXIDE 23.3 MMOL/L (24-32); TRIGLYCERIDES 244 MG/DL (20-135); eGFR 70 ML/MIN
--- NOTE | 2019-11-23 06:28 | NUR ---
Patient in room U 3028. I have received report from Ehsan GARDUNO and had the opportunity to ask questions and assume patient care. Patient sleeping in bed.
[2019-11-23] MEDS: albuterol 2.5 MG/3 ML nebule NEB SCH ×3 (07:00→19:00)
[2019-11-23] MEDS: atorvastatin 20mg tablet PO SCH (07:05)
[2019-11-23] MEDS: buprenorphine/naloxone 8MG-2MG SUBlingual film SL SCH (07:06)
[2019-11-23] MEDS: lisinopril 5mg tablet PO SCH (07:06)
[2019-11-23] MEDS: loratadine 10mg tablet PO SCH (07:06)
[2019-11-23] MEDS: ferrous sulfate 325mg tablet PO SCH (07:06)
[2019-11-23] MEDS: metoprolol tartrate 12.5mg (1/2 tablet) PO SCH ×2 (07:06→20:09)
[2019-11-23] MEDS: pantoprazole 40mg Tablet.DR PO SCH ×2 (07:07→07:16)
[2019-11-23] MEDS: ticagrelor 90mg tablet PO SCH ×2 (07:07→20:09)
[2019-11-23] MEDS: aspirin 81mg tab.chew PO SCH (07:07)
[2019-11-23] MEDS: multivitamins, therapeutics tablet PO SCH (07:07)
--- NOTE | 2019-11-23 07:13 | NUR ---
Problems reprioritized. Patient report given, questions answered & plan of care reviewed with SHAAN LORENZO.
[2019-11-23] MEDS: K and/or MAG REPLACEMENT MC SCH ×2 (07:16→20:00)
[2019-11-23] MEDS: budesonide 0.5mg/2ml UD nebule IH SCH ×2 (07:36→19:47)
[2019-11-23] MEDS ORDERED: FATTY ACIDS PO SCH (08:00)
[2019-11-23] MEDS ORDERED: OMEGA PO SCH (08:00)
[2019-11-23] MEDS ORDERED: FISH OIL PO SCH (08:00)
[2019-11-23] MEDS: fenofibrate 145mg tablet PO SCH (08:32)
--- NOTE | 2019-11-23 18:21 | NUR ---
Problems reprioritized. Patient report given, questions answered & plan of care reviewed with Ehsan GARDUNO and Kayode GARDUNO.
--- NOTE | 2019-11-23 18:45 | NUR ---
Patient in room PCU 3028. I have received report from Celeste GARDUNO and had the opportunity to ask questions and assume patient care. Patient awake on report and in no apparent distress. On room air and on telemetry box 39.
[2019-11-23] MEDS ORDERED: rivaroxaban 10mg tablet PO SCH (21:00)
[2019-11-23] MEDS: insulin glargine (Lantus) pen - multi-dose SQ SCH (21:00)
[2019-11-24] MEDS: ibuprofen 200mg tablet PO SCH ×2 (00:04→07:37)
[2019-11-24] MEDS: gabapentin 300mg capsule PO SCH ×2 (00:04→07:38)
[2019-11-24 02:00] VITALS: BP 117/69
[2019-11-24 05:16] LABS: ALBUMIN 3.6 G/DL (3.4-5.0); ANION GAP 10 (8-16); BLOOD UREA NITROGEN 18 MG/DL (7-18); BUN/CREATININE RATIO 17.8 (5.4-32.0); CALCIUM 8.7 MG/DL (8.5-10.1); CHLORIDE 102 MMOL/L (99-107); CREATININE 1.01 MG/DL (0.60-1.10); GLUCOSE 128 MG/DL (70-104); POTASSIUM 3.7 MMOL/L (3.5-5.1); SODIUM 136 MMOL/L (135-145); TOTAL CARBON DIOXIDE 24.4 MMOL/L (24-32); eGFR 75 ML/MIN
[2019-11-24 05:32] LABS: BASOPHILS % (AUTO) 0.9 % (0-1); EOSINOPHILS # (AUTO) 0.4 X10'3 (0-0.9); EOSINOPHILS % (AUTO) 8.2 % (0-6); HEMATOCRIT 30.8 % (42.0-52.0); HEMOGLOBIN 10.4 g/dl (14.0-17.9); LYMPHOCYTES # (AUTO) 1.3 X10'3 (1.1-4.8); LYMPHOCYTES % (AUTO) 24.5 % (21-51); MEAN CORPUSCULAR HEMOGLOBIN 31.8 PG (27.0-31.0); MEAN CORPUSCULAR HGB CONC 33.8 g/dL (33.0-36.5); MONOCYTES # (AUTO) 0.5 X10'3 (0-0.9); MONOCYTES % (AUTO) 9.7 % (2-12); NEUTROPHILS # (AUTO) 3.1 X10'3 (1.8-7.7); NEUTROPHILS % (AUTO) 56.7 % (42-75); PLATELET COUNT 245 X10'3 (140-440); RED BLOOD COUNT 3.28 X10'6 (4.70-6.10); RED CELL DISTRIBUTION WIDTH 14.7 % (11.5-14.5); WHITE BLOOD COUNT 5.4 X10'3 (4.5-11.0)
[2019-11-24 06:00] VITALS: BP 119/80
--- NOTE | 2019-11-24 06:28 | NUR ---
Orientee documentation: I have reviewed and agree with all interventions, assessments performed and documented by SHAAN Headley.
--- NOTE | 2019-11-24 06:29 | NUR ---
Patient in room PCU 3028. I have received report from Ehsan RN and Kayode RN and had the opportunity to ask questions and assume patient care.
--- NOTE | 2019-11-24 06:29 | NUR ---
Problems reprioritized. Patient report given, questions answered & plan of care reviewed with SHAAN Alonso.
[2019-11-24] MEDS: albuterol 2.5 MG/3 ML nebule NEB SCH ×2 (07:00→10:50)
[2019-11-24] MEDS: budesonide 0.5mg/2ml UD nebule IH SCH (07:13)
[2019-11-24] MEDS: pantoprazole 40mg Tablet.DR PO SCH ×2 (07:30→07:38)
[2019-11-24] MEDS: atorvastatin 20mg tablet PO SCH (07:37)
[2019-11-24 07:38] VITALS: BP_SYST 112
[2019-11-24] MEDS: lisinopril 5mg tablet PO SCH (07:38)
[2019-11-24] MEDS: ferrous sulfate 325mg tablet PO SCH (07:38)
[2019-11-24] MEDS: fenofibrate 145mg tablet PO SCH (07:38)
[2019-11-24] MEDS: aspirin 81mg tab.chew PO SCH (07:38)
[2019-11-24] MEDS: ticagrelor 90mg tablet PO SCH (07:38)
[2019-11-24] MEDS: multivitamins, therapeutics tablet PO SCH (07:38)
[2019-11-24] MEDS: metoprolol tartrate 12.5mg (1/2 tablet) PO SCH (07:38)
[2019-11-24] MEDS: buprenorphine/naloxone 8MG-2MG SUBlingual film SL SCH (07:38)
[2019-11-24] MEDS: loratadine 10mg tablet PO SCH (07:39)
[2019-11-24] MEDS: K and/or MAG REPLACEMENT MC SCH (07:42)
--- NOTE | 2019-11-24 10:48 | NUR ---
Spoke with Dr Mitchel Kern about discharge orders, MD wants to see the patient before discharge, will send the patient home on Brilinta and Xarelto but stopping the Plavix, will continue to monitor the patient closely.
[2019-11-24] MEDS ORDERED: TICA90TA PO (10:56)
[2019-11-24] MEDS ORDERED: ASPI-1265 PO (11:10)
--- NOTE | 2019-11-24 12:08 | NUR ---
Stable for discharge per MD orders, all discharge instructions reviewed with patient and all questions answered, new prescriptions called into [facility] on [address], educated on the need to take ASA/Xarelto/Brilinta but to stop Plavix, educated patient that if he sees any obvious signs of bleeding or has a fall and hits his head to go into the ER, Dr Kaylynn Kern saw patient before discharge, F/U apt made for December 15 at 1430, PIV and tele monitor discontinued, all belongings collected and sent with patient, left the unit at 1208 in wheelchair with nurses aide to private vehicle.
[2019-11-24] MEDS ORDERED: metFORMIN 500mg tablet PO SCH (21:00)
== END 2019-11-24 12:10 | disposition home or self-care (01) | DRG 174 ==
LOC: ER 07:47 → PCU 3S 10:15
PROVIDERS: ADMIT Student in an Organized Health Care Education/Training Program; ATTEND Student in an Organized Health Care Education/Training Program
PROC: 4A023N7 Measurement of Cardiac Sampling and Pressure, Left Heart, Percutaneous Approach (ICD-10-PCS; principal; 2019-11-22)
PROC: B2111ZZ Fluoroscopy of Multiple Coronary Arteries using Low Osmolar Contrast (ICD-10-PCS; 2019-11-22)
PROC: 027034Z Dilation of Coronary Artery, One Artery with Drug-eluting Intraluminal Device, Percutaneous Approach (ICD-10-PCS; 2019-11-22)
DX: I21.3 ST elevation (STEMI) myocardial infarction of unspecified site (principal); I25.10 Atherosclerotic heart disease of native coronary artery without angina pectoris; I10 Essential (primary) hypertension; J44.9 Chronic obstructive pulmonary disease, unspecified; E78.5 Hyperlipidemia, unspecified; E78.00 Pure hypercholesterolemia, unspecified; G47.33 Obstructive sleep apnea (adult) (pediatric); M19.90 Unspecified osteoarthritis, unspecified site; K21.9 Gastro-esophageal reflux disease without esophagitis; D64.9 Anemia, unspecified; E66.9 Obesity, unspecified; Z68.35 Body mass index [BMI] 35.0-35.9, adult; Z95.828 Presence of other vascular implants and grafts; Z86.73 Personal history of transient ischemic attack (TIA), and cerebral infarction without residual deficits; I25.2 Old myocardial infarction; Z95.5 Presence of coronary angioplasty implant and graft
CPT/HCPCS: 36415; 71045; 80048; 80053; 80061; 82948; 83036; 83880; 84484; 85025; 87081; 93005; 94640; 94760; 96365; 96368; 96375; 99152; 99153; 99291; A4620; A6258; C1725; C1751; C1760; C1769; C1874; C1894; C9606; G0378; J1644; J1815; J2001; J2250; J2270; J3010; J3490; J7030; J7626; Q9967

== ENCOUNTER → 2019-12-01 | Day surgery (SDC) | payer MEDICAID ==
[~2019-12-01] MED LIST changes: +ASPI-1265 PO; +TICA90TA PO
== END | disposition home or self-care (01) ==
LOC: WOUND CARE 08:12
PROVIDERS: ATTEND Nurse Practitioner Family
DX: E11.622 Type 2 diabetes mellitus with other skin ulcer (principal); L97.811 Non-pressure chronic ulcer of other part of right lower leg limited to breakdown of skin; S91.001A Unspecified open wound, right ankle, initial encounter; I10 Essential (primary) hypertension; E78.5 Hyperlipidemia, unspecified; I25.10 Atherosclerotic heart disease of native coronary artery without angina pectoris; I25.2 Old myocardial infarction; J44.9 Chronic obstructive pulmonary disease, unspecified; K21.9 Gastro-esophageal reflux disease without esophagitis; G47.33 Obstructive sleep apnea (adult) (pediatric); E78.00 Pure hypercholesterolemia, unspecified; M19.90 Unspecified osteoarthritis, unspecified site; I25.82 Chronic total occlusion of coronary artery; E66.01 Morbid (severe) obesity due to excess calories; Z86.73 Personal history of transient ischemic attack (TIA), and cerebral infarction without residual deficits; Z86.718 Personal history of other venous thrombosis and embolism; Z95.5 Presence of coronary angioplasty implant and graft; Z68.36 Body mass index [BMI] 36.0-36.9, adult; Z79.01 Long term (current) use of anticoagulants; Z79.84 Long term (current) use of oral hypoglycemic drugs; Z79.899 Other long term (current) drug therapy; Z87.891 Personal history of nicotine dependence; X58.XXXA Exposure to other specified factors, initial encounter; Y93.89 Activity, other specified; Y92.89 Other specified places as the place of occurrence of the external cause; Y99.8 Other external cause status
CPT/HCPCS: 82948; G0463

== ENCOUNTER 2020-10-14 20:32 | Emergency (ER) | payer MEDICAID ==
[~2020-10-14] VITALS: Ht 177.8 cm; Wt 122.7 kg
[~2020-10-14 20:32] MED LIST changes: -ASPI-1265 PO; -BUPR1FIL3 SL; +CEPH-585 PO; +ENOX40SY7 SQ; -LISI-604 PO; +LISI-790 PO; +LOVEN SQ; -OMEP40CA13 PO; +OMEP40CA21 PO
[2020-10-14 21:02] VITALS: BP 122/73
[2020-10-15] MEDS ORDERED: HYDROcodone/acetaminophen 10/325mg tab PO ONE (00:45)
[2020-10-15] MEDS ORDERED: LIDOcaine 1% W/epiNEPHrine 1:200,000 10ml vial IJ ONE (00:45)
[2020-10-15] MEDS ORDERED: TETanus/Pertussis (Acell)/Diphther VAC/PF (Tdap-Adult) 0.5ml syringe IMVAC ONE (00:45)
== END 2020-10-15 02:32 | disposition home or self-care (01) ==
LOC: ER 20:33
DX: L02.415 Cutaneous abscess of right lower limb (principal); L03.115 Cellulitis of right lower limb; I25.10 Atherosclerotic heart disease of native coronary artery without angina pectoris; E78.00 Pure hypercholesterolemia, unspecified; I10 Essential (primary) hypertension; I25.2 Old myocardial infarction; J44.9 Chronic obstructive pulmonary disease, unspecified; K21.9 Gastro-esophageal reflux disease without esophagitis; E11.9 Type 2 diabetes mellitus without complications; G89.29 Other chronic pain; Z95.1 Presence of aortocoronary bypass graft; Z98.890 Other specified postprocedural states; Z86.718 Personal history of other venous thrombosis and embolism; Z88.2 Allergy status to sulfonamides; Z91.048 Other nonmedicinal substance allergy status; Z91.040 Latex allergy status; Z79.2 Long term (current) use of antibiotics; Z79.899 Other long term (current) drug therapy
CPT/HCPCS: 10060; 90471; 90715; 99284

== ENCOUNTER 2023-01-31 10:22 | Emergency (ER) | payer MEDICAID ==
[~2023-01-31] VITALS: Ht 177.8 cm; Wt 82.8 kg
[~2023-01-31 10:22] MED LIST changes: -CEPH-585 PO; -ENOX40SY7 SQ; -FENO134C PO; +FENO134C21 PO; -LISI-790 PO; +LISI5TAB22 PO; +METF-1203 PO; -METF-950 PO; -RIVA10TA PO
[2023-01-31 10:33] VITALS: BP 138/81; PULSE 73; RESP 16; TEMP 98.7; O2SAT 96
--- NOTE | 2023-01-31 10:58 | NUR ---
PT STATES HE FEELS BETTER AND THAT THE OBJECT HAS COME OUT OF HIS EYE. LEAVING NOW.
== END 2023-01-31 11:02 | disposition left against medical advice (07) ==
LOC: ER 10:22
DX: H57.11 Ocular pain, right eye (principal); Z53.21 Procedure and treatment not carried out due to patient leaving prior to being seen by health care provider
CPT/HCPCS: 99281

== ENCOUNTER 2023-07-21 05:57 | Emergency (ER) | payer MEDICARE, MEDICAID ==
[~2023-07-21] VITALS: Ht 177.8 cm; Wt 76.4 kg
[2023-07-21 06:01] VITALS: BP 116/77; PULSE 77; RESP 16; TEMP 98.8; O2SAT 95
[2023-07-21] MEDS: ibuprofen tablet 400 MG TABLET PO ONE (07:52)
== END 2023-07-21 08:14 | disposition home or self-care (01) ==
LOC: ER 05:58
DX: S60.221A Contusion of right hand, initial encounter (principal); Z91.040 Latex allergy status; Z88.2 Allergy status to sulfonamides; Z91.09 Other allergy status, other than to drugs and biological substances; Z86.73 Personal history of transient ischemic attack (TIA), and cerebral infarction without residual deficits; I25.10 Atherosclerotic heart disease of native coronary artery without angina pectoris; E78.00 Pure hypercholesterolemia, unspecified; I10 Essential (primary) hypertension; I25.2 Old myocardial infarction; J44.9 Chronic obstructive pulmonary disease, unspecified; K21.9 Gastro-esophageal reflux disease without esophagitis; E11.9 Type 2 diabetes mellitus without complications; G89.29 Other chronic pain; M54.9 Dorsalgia, unspecified; Z86.718 Personal history of other venous thrombosis and embolism; Z98.890 Other specified postprocedural states; W18.30XA Fall on same level, unspecified, initial encounter; Y93.89 Activity, other specified; Y92.89 Other specified places as the place of occurrence of the external cause; Y99.8 Other external cause status
CPT/HCPCS: 73110; 99284

== ENCOUNTER 2023-08-05 14:27 | Outpatient (CLI) | payer MEDICARE, MEDICAID | END 2023-08-05 23:59 | disposition home or self-care (01) | LOC: RAD 14:27 | PROVIDERS: ATTEND Physician Assistant | DX: M25.562 Pain in left knee (principal); W19.XXXA Unspecified fall, initial encounter | CPT/HCPCS: 73564 ==

== ENCOUNTER 2024-05-11 06:39 | Outpatient (CLI) | payer MEDICARE, MEDICAID | END 2024-05-11 23:59 | disposition home or self-care (01) | LOC: MRI02 06:39 | PROVIDERS: ATTEND Physician Assistant Surgical | DX: M19.011 Primary osteoarthritis, right shoulder (principal); M62.511 Muscle wasting and atrophy, not elsewhere classified, right shoulder; M25.411 Effusion, right shoulder; M25.811 Other specified joint disorders, right shoulder; M25.511 Pain in right shoulder | CPT/HCPCS: 73221 ==

== ENCOUNTER 2024-06-30 08:15 | Outpatient (CLI) | payer MEDICARE, MEDICAID | END 2024-06-30 23:59 | disposition home or self-care (01) | LOC: RAD 08:15 | PROVIDERS: ATTEND Specialist | DX: S43.011A Anterior subluxation of right humerus, initial encounter (principal); M75.120 Complete rotator cuff tear or rupture of unspecified shoulder, not specified as traumatic; M19.011 Primary osteoarthritis, right shoulder; M25.511 Pain in right shoulder; X58.XXXA Exposure to other specified factors, initial encounter; Y93.89 Activity, other specified; Y92.89 Other specified places as the place of occurrence of the external cause; Y99.8 Other external cause status | CPT/HCPCS: 73200 ==

== ENCOUNTER 2024-12-06 07:00 | Emergency (ER) | payer MEDICARE, MEDICAID ==
[~2024-12-06] VITALS: Ht 177.8 cm; Wt 93.9 kg
[2024-12-06 07:14] VITALS: TEMP 97.5
--- NOTE | 2024-12-06 07:49 | RADIOLOGY REPORT ---
CLINICAL INDICATION: Shoulder Pain TECHNIQUE: DI SHOULDER, COMPLETE (MIN 2 VWS) Comparison: CT CT UPPER EXTREMITIES on DOS: 06/30/24, MR MRI UPPER EXTREMITY RIGHT on DOS: 05/11/24, DI WRIST, COMPLETE (3VW MIN) on DOS: 07/21/23 FINDINGS/IMPRESSION: : There is no evidence of acute fracture or dislocation. The humeral head is moderately high-riding. Moderate glenohumeral joint space narrowing and marginal osteophytosis and moderate to severe hypertrophic acromioclavicular arthropathy. The visualized portions of the lungs are clear. The ribs are intact. ACDF hardware. Soft tissues are unremarkable.
--- NOTE | 2024-12-06 08:02 | Physician Documentation ---
History of Present Illness ~ Chief Complaint: Mechanical Fall Stated Complaint: FALL, ON THINNERS Time Seen by MD: 07:49 Primary Medical Doctor: EMILY KONG Source: patient Mode of Arrival: POV Exam Limitations: no limitations HPI Chief Complaint: Fall, left shoulder injury Caveat: None Independent Historians: None History of Present Illness: Patient is a 64-year-old man who fell through his floor in his mobile home last week. His left foot went through the floor and he fell to his left landing on his left forearm injuring his left shoulder. Gisela hay has suffered an abrasion to the right elbow. Patient also hit the left side of his face, left cheek and nose. Patient denies any other injuries. Patient denies any neck pain. Patient is complaining of some discomfort in the lateral left base of the neck. No back pain. Review of systems: All systems were reviewed and are negative except for what is indicated in the history of present illness. Past Medical History: Atrial fibrillation, drop foot Past Surgical History: Orthopedic lumbar surgery, cervical fusion, hernia repair Social History: No tobacco use, no alcohol use, no drug use Medications: Reviewed as documented Nursing Notes Allergies: Reviewed as documented in Nursing Notes Tetanus within 5 Years?: Yes Medication Reconciliation Allergies: Coded Allergies: latex (Verified Allergy, Intermediate, HIVES, 07/21/23) RASH/ITCHING adhesive tape (Verified Allergy, Mild, ITCHING / HIVES, 07/21/23) Scheduled Atorvastatin Calcium (Atorvastatin Calcium), 1 TAB PO DAILY, (Reported) Evolocumab (Repatha Sureclick), 1 ML [id number], (Reported) Fenofibrate,Micronized (Fenofibrate), 1 CAP PO DAILY, (Reported) Ferrous Sulfate (Ferrous Sulfate), 1 TAB PO DAILY, (Reported) Fluticasone/Vilanterol (Breo Ellipta 100-25 Mcg INH), 1 PUFF INH DAILY, (Reported) Gabapentin (Gabapentin), 2 CAP PO Q8H, (Reported) Ibuprofen (Ibuprofen), 1 TAB PO Q8H, (Reported) Lisinopril (Lisinopril), 1 TAB PO DAILY, (Reported) Loratadine (Loratadine), 1 TABLET PO DAILY, (Reported) Metformin HCl (Metformin HCl), 2 TAB PO HS, (Reported) Multivit-Min/FA/Lycopen/Lutein (Centrum Silver Men Tablet), 1 TAB PO DAILY, (Reported) Nitroglycerin (Nitroglycerin), 1 TAB SL UD, (Reported) [place]-3 Fatty Acids/Fish Oil (Fish Oil 1,000 Mg Softgel), 1 EACH PO DAILY, (Reported) Omeprazole (Prilosec), 1 CAP PO QAM, (Reported) Ticagrelor (Brilinta), 90 MG PO BID [Loven], 120 MG SQ DAILY Past Medical History Past Medical History: CVA/TIA/Stroke, Coronary Artery Disease, High Cholesterol, Hypertension, Myocardial Infarction, Vascular Disease, Bronchitis, COPD, GERD, Hernia, Diabetes, Chronic Back Pain, Deep Vein Thrombosis Past Surgical History: angioplasty, orthopedic surgeries, other Other Past Surgical History: back surgery, neck surgery, cardiac stents Patient History: No Family History of: (CABG) Coronary artery bypass grafting (CAD) Coronary arteriosclerosis (CHF) Congestive heart failure (COPD) Chronic obstructive lung disease (CVA) Cerebrovascular accident (Cancer) Malignant carcinoid tumor (DM Type 2) Diabetes mellitus type 2 (DM Type1) Diabetes mellitus type 1 (SD) Myocardial infarction (PVD) Peripheral vascular disease (TIA) Transient ischemic attack Alzheimer's disease Aortic aneurysm Asthma Cardiac arrest Hypercholesterolemia Alcohol Use: None Drug Use: none Lives with: Spouse Occupation: employed Review of Systems All Other Systems at this time: Reviewed and Negative ROS Patient denies any other acute symptoms other than above. All other systems are negative Physical Exam Vital Signs: RN Vital Signs have been reviewed: Yes, Temperature: 97.5, Source: Temporal, Heart Rate: 70, Respiratory Rate: 16, BP: 131/79, Pulse Oximetry: 97, Weight: 93.900 Oxygen Flow Rate: 0 Pulse Oximetry Reflects: adequate oxygenation Physical Exam General Appearance: No distress HEENT: Normal OP, moist oral mucosa, PERRL, EOMI, healing abrasion to the left cheek, resolving ecchymosis to the left lateral nose Neck: supple, normal ROM, trachea midline Pulmonary: No respiratory distress, CTA, BS equal Cardiac: Irregularly irregular rhythm, normal rate, no murmur, rub or gallop, Extremities: Decreased range of motion left shoulder. Tenderness over the medial anterior Skin: intact, dry, warm, no rashes Neuro: AAOx3, speech is clear, no focal motor weakness Psych: normal affect, good eye contact, no apparent hallucination, normal speech Progress Results/Orders Results/Orders Orders - AMNA RANKIN MD Shoulder, Complete (Min 2 Vws) (12/06/24 07:27) Completed Orders - AMNA RANKIN MD Shoulder, Complete (Min 2 Vws) (12/06/24 07:27) Vital Signs 12/06/24 12/06/24 07:14 07:38 Temp 97.5 Pulse 70 Resp 16 B/P (MAP) 131/79 Pulse Ox 97 O2 Flow Rate 0 Medical Decision Making Findings Differential diagnosis includes but is not limited to: Rotator cuff injury, AC separation, fracture, dislocation Left shoulder x-rays, three views, indication: Trauma Independent interpretation: No AC separation, osteopenia, no dislocation. No fractures identified. Emergency department course/medical decision-making: Patient presents with left shoulder injury. Patient has decreased range of motion consistent with a rotator cuff injury. Patient will be referred to his primary care doctor for physical therapy. Test results and treatment plan and all of the above reviewed with the patient. Departure Time of Disposition: 08:06 Disposition: 01 HOME / SELF CARE / HOMELESS Impression: Primary Impression: Rotator cuff injury Qualified Codes: S46.002A - Unspecified injury of muscle(s) and tendon(s) of the rotator cuff of left shoulder, initial encounter Condition: Stable Discharge Instructions: Rotator Cuff Tear Additional Instructions: YOU MAY HAVE AN INJURY TO YOUR ROTATOR CUFF. RECOMMEND YOU FOLLOW UP WITH YOUR PRIMARY CARE DOCTOR FOR REFERRAL TO PHYSICAL THERAPY. RECOMMEND MRI OF THE LEFT SHOULDER AND REFERRAL TO ORTHOPEDICS. Education Educated: Patient Educated regarding: diagnosis, treatment, need for follow up Signature Scribe Signature: No scribe Attestation: No scribe AMNA RANKIN MD Dec 06, 2024 08:02
[2024-12-06 08:15] VITALS: BP 128/75; PULSE 72; RESP 18; O2SAT 96
== END 2024-12-06 08:21 | disposition home or self-care (01) ==
LOC: ER 07:01
DX: S49.92XA Unspecified injury of left shoulder and upper arm, initial encounter (principal); I10 Essential (primary) hypertension; E78.00 Pure hypercholesterolemia, unspecified; J44.9 Chronic obstructive pulmonary disease, unspecified; I48.91 Unspecified atrial fibrillation; I25.10 Atherosclerotic heart disease of native coronary artery without angina pectoris; Z86.718 Personal history of other venous thrombosis and embolism; Z86.73 Personal history of transient ischemic attack (TIA), and cerebral infarction without residual deficits; Z88.8 Allergy status to other drugs, medicaments and biological substances; Z98.890 Other specified postprocedural states; W18.39XA Other fall on same level, initial encounter; Y93.89 Activity, other specified; Y92.89 Other specified places as the place of occurrence of the external cause; Y99.8 Other external cause status
CPT/HCPCS: 73030; 99284; A4565

== ENCOUNTER 2024-12-22 14:30 | Outpatient (CLI) | payer MEDICARE, MEDICAID ==
--- NOTE | 2024-12-23 11:15 | RADIOLOGY REPORT ---
CLINICAL INDICATION: PAIN IN LEFT SHOULDER COMPARISON: DI SHOULDER, COMPLETE (MIN 2 VWS) on DOS: 12/06/24, CT CT UPPER EXTREMITIES on DOS: 06/30/24, MR MRI UPPER EXTREMITY RIGHT on DOS: 05/11/24 TECHNIQUE: Multiplanar, multisequence MRI of the left all shoulder was performed without contrast. Contrast: None FINDINGS: Glenohumeral joint: There is no fracture or bone marrow edema. High-riding humeral head. There is articular cartilage loss of the humeral head with osteophytes noted. Small glenohumeral joint effusion. Acromioclavicular joint: The acromioclavicular joint is narrowed with capsular hypertrophy. There is a type 2 acromion. Rotator cuff and bursae: There is a full-thickness full width tear of supraspinatus. There is infraspinatus tendinosis and partial-thickness articular surface tear. Severe subscapularis tendinosis. Teres minor tendon is intact. No evidence of significant muscle atrophy. Fluid decompresses freely into the subacromial subdeltoid bursa from the glenohumeral joint through the full- thickness rotator cuff tear. Biceps tendon and glenoid labrum: The long head biceps tendon is located within the bicipital groove and has interstitial tear. Diffuse labral degeneration noted. There is a tear of the anterior superior glenoid labrum. IMPRESSION: 1. Full-thickness full width tear of supraspinatus in the left shoulder. 2. Infraspinatus tendinosis and partial-thickness articular surface tear. 3. Severe subscapularis tendinosis. 4. Interstitial tear of the long head biceps tendon. 5. Tear of the anterior superior glenoid labrum. 6. Glenohumeral joint osteoarthritis.
== END 2024-12-22 23:59 | disposition home or self-care (01) ==
LOC: MRI02 14:30
PROVIDERS: ATTEND Nurse Practitioner Primary Care
DX: S43.432D Superior glenoid labrum lesion of left shoulder, subsequent encounter (principal); M75.121 Complete rotator cuff tear or rupture of right shoulder, not specified as traumatic; M25.512 Pain in left shoulder; M19.012 Primary osteoarthritis, left shoulder; X58.XXXD Exposure to other specified factors, subsequent encounter
CPT/HCPCS: 73221